=== PATIENT | male | born 1970 | race Caucasian/White ===

== ENCOUNTER 2021-10-22 09:52 | Outpatient (CLI) | payer OTHER, SELFPAY ==
[2021-10-22 11:28] LABS: Albumin* 4.4 g/dL (3.3-5.0)
[2021-10-22 11:29] LABS: Chloride* 104 mmol/L (96-114); Potassium* 4.4 mmol/L (3.6-5.1); Sodium* 138 mmol/L (135-149)
[2021-10-22 11:31] LABS: Alkaline Phosphatase* 72 U/L (40-150); Aspartate Amino Transferase* 63 U/L (12-35); Bilirubin Total* 1.2 mg/dL (0.1-1.5); Blood Urea Nitrogen* 15 mg/dL (7-30); Carbon Dioxide* 26 mmol/L (20-32); Creatinine* 1.3 mg/dL (0.5-1.5); Estimated Glomerular Filt Rate 66 ml/min; Total Protein* 7.2 g/dL (6.0-8.3)
[2021-10-22 11:32] LABS: Alanine Aminotransferase* 30 U/L (4-50); Glucose* 64 mg/dL (60-115)
== END 2021-10-22 09:53 | disposition home or self-care (01) ==
PROVIDERS: PCP Family Medicine; Visit Provider Family Medicine
DX: R53.83 Other fatigue (principal); Z51.81 Encounter for therapeutic drug level monitoring
CPT/HCPCS: 80053; 84443

== ENCOUNTER 2023-02-24 22:49 | Outpatient (CLI) | payer MEDICARE, SELFPAY ==
--- OUTSIDE RECORDS SUMMARY | 2023-03-04 17:41 | XMS_ITS | Clinical Summary ---
Author Name Unknown Organization [facility] Address [place], [place] [address] Care Team Providers Care Grades 1 Thru 6 Visiting Teacher Name Role Phone [place] Ozz[place] gro[place] Primary Care Provider Unavail able Allergies Active Allergy Reactions Criticality Noted Date Comments [place] *Unknown 06/19/2016 Trazodone *Unknown 06/19/2016 Medications Medication Sig Dispensed Refills Start Date End Date Status cloNIDine HCL (CATAPRES) 0.1 mg tablet Take by mouth. TAKE 1/2 TABLET EVERY MORNING AND 2 TABLETS EVERY NIGHT AT BEDTIME 0 01/22/2022 Active divalproex (DEPAKOTE) 125 mg Delayed-Release tablet Take 250 mg by mouth at bedtime. TAKE TWO 125 MG TABLETS WITH TWO 500 MG TABLETS (FOR A TOTAL OF 1250 MG) 0 10/18/2021 Active divalproex (DEPAKOTE ER) 500 mg Extended-Release tablet Take by mouth at bedtime. TAKE TWO 125 MG TABLETS WITH TWO 500 MG TABLETS (FOR A TOTAL OF 1250 MG) 0 01/21/2022 Active pregabalin (LYRICA) 300 mg capsule Take 300 mg by mouth two times daily. 0 01/21/2022 Active warfarin (COUMADIN) 3 mg tablet Take 9 mg by mouth once daily. 0 11/27/2021 Active lurasidone (Latuda) 120 mg tab Take 120 mg by mouth once daily. 0 Active pantoprazole (PROTONIX) 40 mg delayed-release tabletIndications:UG I bleed Take 1 Tablet (40 mg) by mouth two times daily before meals. 60 Tablet 0 02/19/2022 Active sucralfate (CARAFATE) 1 gram tabletIndications:UG I bleed Take 1 Tablet (1 g) by mouth four times daily before meals and at bedtime. 120 Tablet 0 02/19/2022 Active Active Problems Problem Noted Date Diagnosed Date Alcohol abuse 02/18/2022 UGI bleed 02/17/2022 Bipolar 1 disorder Encounters Date Type Department Care Team Description 02/25/2023 12:05 AM CUSTOMER ASSOCIATE - 02/25/2023 8:32 AM CUSTOMER ASSOCIATE Emergency [facility] [address] [place] [address] Tuan Marsh MD Methamphetamine abuse (HC) (Primary Dx) Discharge Disposition: Home Self Care 02/25/2023 Travel from Last 3 Months Social History Tobacco Use Types Packs/Day Years Used Date Smoking Tobacco: Every Day Cigarettes Smokeless Tobacco: Never Tobacco Cessation:Ready to Q uit: Not Asked; Counseling Given: Not Answered Alcohol Use Standard Drinks/Week Comments Not Currently 0 (1 standard drink = 0.6 oz pur e alcohol) Social Connections Answer Date Recorded Frequency of Communication with Friends and Fami ly Not on file 05/26/2022 Sex and Gender Information Value Date Recorded Sex Assigned at Not on file Gender Identity Not on file Sexual Orientation Not on file Obstetrics History Last Filed Vital Signs Vital Sign Reading Time Taken Comments Blood Pressure 134/88 02/25/2023 12:36 AM CUSTOMER ASSOCIATE Pulse 92 02/25/2023 12:36 AM CUSTOMER ASSOCIATE Temperature 36.8 ??C (98.2 ??F) 02/25/2023 1 2:36 AM CUSTOMER ASSOCIATE Respiratory Rate 16 02/25/2023 12:3 6 AM CUSTOMER ASSOCIATE Oxygen Saturation 97% 02/25/2023 12: 36 AM CUSTOMER ASSOCIATE Inhaled Oxygen Concentration - - Weight 91.6 kg (201 lb 14.4 oz) 02/19/2022 6:00 AM CUSTOMER ASSOCIATE Height 193 cm (6' 3.98) 02/18/2022 4:00 PM CUSTOMER ASSOCIATE Body Mass Index 24.59 02/18/2022 4:00 PM CUSTOMER ASSOCIATE Plan of Treatment Health Maintenance Due Date Last Done Comments Tdap 12/01/1979 Depression screening for age 12+ 1980 HIV for age 15-65 12/01/1983 BMI (ht and wt on same day) for age 18+ 1986 Hepatitis C screening for ag e 18-79 1986 Tetanus booster 1988 Colonoscopy through age 75 2013 Lipids for age 45-75 2013 Zoster (shingles) series for age 50+ (1 of 2) 2018 COVID-19 vaccine series ( season) 2022 05/17/2020, 04/19/2020 Influenza for age 50-64 10/16/2022 Pneumococcal series for age 6-64 Aged Out No longer eligible b ased on patient's age to complete this topic Procedures Procedure Name Priority Date/Time Associated Diagnosis Comments ETHANOL SERUM OR PLASMA STAT 02/25/2023 12:21 AM CUSTOMER ASSOCIATE DRUG SCREEN RAPID URINE INHOUSE STAT 02/25/2023 12:18 AM CUSTOMER ASSOCIATE from Last 3 Months Results * ETHANOL SERUM OR PLASMA (02/25/2023 12:21 AM CUSTOMER ASSOCIATE) ETHANOL <0.010 <0.010 g/dL 02/25/2023 12:50 AM [facility] Blood BLOOD SPECIMEN / Unknown Butterfly / Unknown 02/25/2023 12:21 AM CUSTOMER ASSOCIATE 02/25/2023 12:32 AM CUSTOMER ASSOCIATE Tuan Marsh MD CHEMISTRY [facility] [address] [place] [address] * (ABNORMAL) DRUG SCREEN RAPID URINE INHOUSE (02/25/2023 12:18 AM CUSTOMER ASSOCIATE) THC METABOLITES,PREETI L Non-negative , consider further testing if indicated(A) Not Detected 02/25/2023 12:54 AM [facility] PCP,QUAL Not Detected Not Detected 02/25/2023 12:54 AM [facility] COCAINE,QUAL Not Detected Not Detected 02/25/2023 12:54 AM [facility] METHAMPHETAMINE , QUALITATIVE Non-negative , consider further testing if indicated(A) Not Detected 02/25/2023 12:54 AM [facility] OPIATES,QUAL Not Detected Not Detected 02/25/2023 12:54 AM [facility] AMPHETAMINE, QUALITATIVE Non-negative , consider further testing if indicated(A) Not Detected 02/25/2023 12:54 AM [facility] BENZODIAZEPINES ,QUAL Not Detected Not Detected 02/25/2023 12:54 AM [facility] TRICYCLICS,QUAL Not Detected Not Detected 02/25/2023 12:54 AM [facility] METHADONE, QUALITATIVE Not Detected Not Detected 02/25/2023 12:54 AM [facility] BARBITURATES,QU AL Not Detected Not Detected 02/25/2023 12:54 AM [facility] OXYCODONE, QUALITATIVE Not Detected Not Detected 02/25/2023 12:54 AM [facility] BUPRENORPHINE, QUALITATIVE Not Detected Not Detected 02/25/2023 12:54 AM [facility] Urine URINE SPECIMEN / Unknown Non-Blood / Unknown 02/25/2023 12:18 AM [facility] 02/25/2023 12:[address] [facility] - 02/25/2023 12:54 AM [facility] Please Note: ?? This is a screening test only, all results are unconfirmed and should be used for medical purposes only. ??Unconfirmed results must not be used for non-medical purposes (e.g., employment testing, legal testing). ??Suggest analyte specific confirmation for all non-negative results. ??Specimens will be held for 24 hours if additional testing is needed. ?? The following threshold concentrations are used for this analysis: ? Drug ? Screening Threshold ? Buprenorphine ? 10 ng/mL PCP ? 25 ng/mL ?? THC Metabolites ? 50 ng/mL *Opiates ? 100 ng/mL Oxycodone ?100 ng/mL Cocaine ?150 ng/mL Benzodiazepines ?150 ng/mL ?? Methadone ?200 ng/mL ?? Barbiturates ? 200 ng/mL Tricyclic Antidepressants ?300 ng/mL ?? Amphetamines ? 500 ng/mL ?? Methamphetamines ? 500 ng/mL ?*Includes related compounds: ? Codeine ?50 ng/mL ? Heroin ?100 ng/mL ? Morphine ?100 ng/mL ? Hydrocodone ? 400 ng/mL ? Hydromorphone ? 800 ng/mL ?Venlafaxine (Effexor) is a known cross reactant in the PCP ?assay. ??If clinically indicated, order PCP confirmation. Tuan Marsh MD URINE Performing Organization Address [facility]/State/ZIP Co de Phone Number [facility] [address] [place] [address] from Last 3 Months Advance Directives Latest Code Status on File Code Status Date Activated Date Inactivated Comments Full Code 02/17/2022 10:41 PM 02/20/2022 12:21 PM Question Answer Comments Code Status Discussion: Reviewed Preferences Care Teams Grades 1 Thru 6 Visiting Teacher Relationship Specialty Start Date End Date Mirian Alberts PCP - General 12/24/21
== END 2023-02-24 22:50 | disposition home or self-care (01) ==
PROVIDERS: PCP Family Medicine; Visit Provider Emergency Medicine Emergency Medical Services
DX: R41.82 Altered mental status, unspecified (principal)
CPT/HCPCS: A0425; A0427

== ENCOUNTER 2023-03-16 08:48 | Outpatient (CLI) | payer MEDICARE, SELFPAY ==
--- OUTSIDE RECORDS SUMMARY | 2023-03-16 09:15 | XMS_ITS | Clinical Summary ---
Author Name Unknown Organization [employer] [facility] Address [place], [place] [address] Care Team Providers Care Public Relations Senior Associate Name Role Phone [place] Ozziegrady Primary Care Provider Unavail able Allergies Active Allergy Reactions Criticality Noted Date Comments [place] *Unknown 06/19/2016 Trazodone *Unknown 06/19/2016 Medications Medication [...] Department Care Team Description 02/25/2023 12:05 AM WAGE ANALYST - 02/25/2023 8:32 AM WAGE ANALYST Emergency [facility] [address] [place] [address] Tuan Marsh MD Methamphetamine abuse (HC) (Primary [...] Comments Blood Pressure 134/88 02/25/2023 12:36 AM WAGE ANALYST Pulse 92 02/25/2023 12:36 AM WAGE ANALYST Temperature 36.8 ??C (98.2 ??F) 02/25/2023 1 2:36 AM WAGE ANALYST Respiratory Rate 16 02/25/2023 12:3 6 AM WAGE ANALYST Oxygen Saturation 97% 02/25/2023 12: 36 AM WAGE ANALYST Inhaled Oxygen Concentration - - Weight 91.6 kg (201 lb 14.4 oz) 02/19/2022 6:00 AM WAGE ANALYST Height 193 cm (6' 3.98) 02/18/2022 4:00 PM WAGE ANALYST Body Mass Index 24.59 02/18/2022 4:00 PM WAGE ANALYST Plan of Treatment Health Maintenance Due Date [...] SERUM OR PLASMA STAT 02/25/2023 12:21 AM WAGE ANALYST DRUG SCREEN RAPID URINE INHOUSE STAT 02/25/2023 12:18 AM WAGE ANALYST from Last 3 Months Results * ETHANOL SERUM OR PLASMA (02/25/2023 12:21 AM WAGE ANALYST) ETHANOL <0.010 <0.010 g/dL 02/25/2023 12:50 AM [facility] Blood BLOOD SPECIMEN / Unknown Butterfly / Unknown 02/25/2023 12:21 AM WAGE ANALYST 02/25/2023 12:32 AM WAGE ANALYST Tuan Marsh MD CHEMISTRY [facility] [address] [place] [address] * (ABNORMAL) DRUG SCREEN RAPID URINE INHOUSE (02/25/2023 12:18 AM WAGE ANALYST) THC METABOLITES,PREETI L Non-negative , consider further testing if indicated(A) Not Detected 02/25/2023 12:54 AM [facility] PCP,QUAL Not Detected Not Detected 02/25/2023 12:54 AM [facility] COCAINE,QUAL Not Detected Not Detected 02/25/2023 12:54 AM [facility] METHAMPHETAMINE , QUALITATIVE Non-negative , consider further testing if indicated(A) Not Detected 02/25/2023 12:54 AM [facility] OPIATES,QUAL Not Detected Not Detected 02/25/2023 12:54 AM [facility] AMPHETAMINE, QUALITATIVE Non-negative , consider further testing if indicated(A) Not Detected 02/25/2023 12:54 AM [facility] BENZODIAZEPINES ,QUAL Not Detected Not Detected 02/25/2023 12:54 AM [facility] TRICYCLICS,QUAL Not Detected Not Detected 02/25/2023 12:54 AM [facility] METHADONE, QUALITATIVE Not Detected Not Detected 02/25/2023 12:54 AM [facility] BARBITURATES,QU AL Not Detected Not Detected 02/25/2023 12:54 AM [facility] OXYCODONE, QUALITATIVE Not Detected Not Detected 02/25/2023 12:54 AM [facility] BUPRENORPHINE, QUALITATIVE Not Detected Not Detected 02/25/2023 12:54 AM [facility] Urine URINE SPECIMEN / Unknown Non-Blood / Unknown 02/25/2023 12:18 AM [facility] 02/25/2023 12:38 AM [facility] - 02/25/2023 12:54 AM [facility] Please Note: ?? This is a screening [...] Tuan Marsh MD URINE Performing Organization Address [facility]/State/ZIP Co de Phone Number [facility] [address] [place] [address] from Last 3 Months Advance Directives Latest Code Status on File Code Status Date Activated Date Inactivated Comments Full Code 02/17/2022 10:41 PM 02/20/2022 12:21 PM Question Answer Comments Code Status Discussion: Reviewed Preferences Care Teams Public Relations Senior Associate Relationship Specialty Start Date End Date Mirian Alberts PCP - General 12/24/21
== END 2023-03-16 08:49 | disposition home or self-care (01) ==
PROVIDERS: PCP Family Medicine; Visit Provider Family Medicine
DX: Z86.711 Personal history of pulmonary embolism (principal); Z79.01 Long term (current) use of anticoagulants; F31.9 Bipolar disorder, unspecified; F19.10 Other psychoactive substance abuse, uncomplicated; Z79.899 Other long term (current) drug therapy
CPT/HCPCS: 80053; 80164; 80165; 85025

== ENCOUNTER 2023-05-25 08:58 | Outpatient (CLI) | payer OTHER, SELFPAY ==
--- OUTSIDE RECORDS SUMMARY | 2023-05-25 09:00 | XMS_ITS | Clinical Summary ---
Author Name Unknown Organization [facility] Address [address] [place] [address] Care Team Providers Care Champion Of Sustainable Design Name Role Phone Unavailable Primary Care Provider Unavailabl e Source Comments Patient records contain information from all sites at [facility]. For routine questions regarding patient records, call [phone] during business hours, M-F 8:00 AM - 5:00 PM Central Time. Record requests for emergency care only can be directed to [phone] at any time.[facility] Allergies Active Allergy Reactions Criticality Noted Date Comments [place] Other (see comments) 06/19/2016 Nervous hand tremors Quetiapine Anxiety 03/16/2023 Restless legs Trazodone Other (see comments) 06/19/2016 Restless legs Medications Medication Sig Dispensed Refills Start Date End Date Status warfarin (JANTOVEN) 3 mg tablet Take 9 mg by mouth daily. 0 11/27/2021 Active divalproex (DEPAKOTE ER) 500 mg 24 hr tablet Take 625 mg by mouth daily. 0 01/21/2022 Active pregabalin (LYRICA) 300 mg capsule Take 300 mg by mouth 2 (two) times a day. 0 01/21/2022 Active cloNIDine (CATAPRES) 0.1 mg tablet Take 0.5 mg by mouth 2 (two) times a day. 0 01/22/2022 Active promethazine (PHENERGAN) 25 mg tablet Take 25 mg by mouth every 6 (six) hours as needed for nausea or vomiting. 0 Active Social History Tobacco Use Types Packs/Day Years Used Date Smoking Tobacco: Never Assessed Nutrition Answer Date Recorded Nutrition: EVOO Fat Source Unknown 03/15 Nutrition: Servings of Fruits/Vegetables per Day Not on file 03/15/2023 Dental Answer Date Recorded Dental: Regular Dentist Unknown 03/15/19 Sex and Gender Information Value Date Recorded Sex Assigned at Not on file Gender Identity Male 03/16/2023 1:26 PM RUG DYER Sexual Orientation Straight 03/16/2023 1: 26 PM RUG DYER Plan of Treatment Health Maintenance Due Date Last Done Comments CT Colonography 1968 Cologuard 1968 Colonoscopy 1968 Colorectal Cancer Screening 1968 FIT 1968 HIV Screening 1968 Hepatitis C Screening 1968 Lipid (Cholesterol) Screening 1968 Hepatitis B Vaccines (1 of 3 - 19+ 3-dose series) 12/01/1987 Zoster Vaccines (1 of 2) 2018 COVID-19 Vaccine (3 - 2022-2 4 season) 2022 05/17/2020, 04/19/2020 Influenza Vaccine (#1) 2022 Depression Screening (Annual PHQ-2) 02/15/2023 Fasting Glucose for Diabetes Screening 02/17/2025 02/17/2022, 12/24/2021 DTaP,Tdap,and Td Vaccines (2 - Td or Tdap) 02/23/2026 02/24/2016 Pneumococcal vaccine (0-64 years) Aged Out No longer eligible b ased on patient's age to complete this topic
--- OUTSIDE RECORDS SUMMARY | 2023-05-25 09:00 | XMS_ITS | Clinical Summary ---
Author Name Unknown Organization [employer] [facility] Address [place], [place] [address] Care Team Providers Care Pharmaceutical Process Engineer Name Role Phone Ozzie Albertshedley Primary Care Provider Unavail able Allergies Active Allergy Reactions Criticality Noted Date Comments [place] *Unknown 06/19/2016 Trazodone *Unknown 06/19/2016 Medications Medication Sig Dispensed Refills Start Date End Date Status cloNIDine HCL (CATAPRES) 0.1 mg tablet Take by mouth. TAKE 1/2 TABLET EVERY MORNING AND 2 TABLETS EVERY NIGHT AT BEDTIME 01/22/2022 Active divalproex (DEPAKOTE) 125 mg Delayed-Release tablet Take 250 mg by mouth at bedtime. TAKE TWO 125 MG TABLETS WITH TWO 500 MG TABLETS (FOR A TOTAL OF 1250 MG) 10/18/2021 Active divalproex (DEPAKOTE ER) 500 mg Extended-Release tablet Take by mouth at bedtime. TAKE TWO 125 MG TABLETS WITH TWO 500 MG TABLETS (FOR A TOTAL OF 1250 MG) 01/21/2022 Active pregabalin (LYRICA) 300 mg capsule Take 300 mg by mouth two times daily. 01/21/2022 Active warfarin (COUMADIN) 3 mg tablet Take 9 mg by mouth once daily. 11/27/2021 Active lurasidone (Latuda) 120 mg tab Take 120 mg by mouth once daily. Active pantoprazole (PROTONIX) 40 mg delayed-release tabletIndications:UG I bleed Take 1 Tablet (40 mg) by mouth two times daily before meals. 60 Tablet 02/19/2022 Active sucralfate (CARAFATE) 1 gram tabletIndications:UG I bleed Take 1 Tablet (1 g) by mouth four times daily before meals and at bedtime. 120 Tablet 02/19/2022 Active Active Problems Problem Noted Date Diagnosed Date Alcohol abuse 02/18/2022 UGI bleed 02/17/2022 Bipolar 1 disorder Encounters Date Type Department Care Team Description 03/16/2023 Lab Requisition [facility] [phone] Kale Lopez MD 02/25/2023 12:05 AM ARMORED CAR DRIVER - 02/25/2023 8:32 AM ARMORED CAR DRIVER Emergency [address] [address] Tuan Marsh MD Methamphetamine abuse (HC) (Primary [...] Comments Blood Pressure 134/88 02/25/2023 12:36 AM ARMORED CAR DRIVER Pulse 92 02/25/2023 12:36 AM ARMORED CAR DRIVER Temperature 36.8 ??C (98.2 ??F) 02/25/2023 1 2:36 AM ARMORED CAR DRIVER Respiratory Rate 16 02/25/2023 12:3 6 AM ARMORED CAR DRIVER Oxygen Saturation 97% 02/25/2023 12: 36 AM ARMORED CAR DRIVER Inhaled Oxygen Concentration - - Weight 91.6 kg (201 lb 14.4 oz) 02/19/2022 6:00 AM ARMORED CAR DRIVER Height 193 cm (6' 3.98) 02/18/2022 4:00 PM ARMORED CAR DRIVER Body Mass Index 24.59 02/18/2022 4:00 PM ARMORED CAR DRIVER Plan of Treatment Health Maintenance Due Date [...] (1 of 2) 2018 COVID-19 vaccine series (2022- season) 2022 05/17/2020, 04/19/2020 Influenza for age 50-64 10/17/2023 Pneumococcal series for age 6-64 Aged Out No longer eligible b ased on patient's age to complete this topic Procedures Procedure Name Priority Date/Time Associated Diagnosis Comments VALPROIC ACID TOTAL Routine 03/16/2023 8 :53 AM ARMORED CAR DRIVER ETHANOL SERUM OR PLASMA STAT 02/25/2023 12:21 AM ARMORED CAR DRIVER DRUG SCREEN RAPID URINE INHOUSE STAT 02/25/2023 12:18 AM ARMORED CAR DRIVER from Last 3 Months Results * (ABNORMAL) VALPROIC ACID TOTAL (03/16/2023 8:53 AM ARMORED CAR DRIVER) VALPROIC ACID,TOTAL 15.7(L) 50.0 - 100.0 ug/mL 03/16/2023 9:42 PM ARMORED CAR DRIVER [facility] DATE OF LAST DOSE Not Given 03/16/2023 9:42 PM ARMORED CAR DRIVER [facility] TIME OF LAST DOSE Not Given 03/16/2023 9:42 PM ARMORED CAR DRIVER [facility] Blood BLOOD SPECIMEN / Unknown Client Collect / Unknown 03/16/2023 8:53 AM ARMORED CAR DRIVER 03/16/2023 8:43 PM ARMORED CAR DRIVER Kale Lopez MD CHEMISTRY [facility] [address] [place] [address], * ETHANOL SERUM OR PLASMA (02/25/2023 12:21 AM ARMORED CAR DRIVER) ETHANOL <0.010 <0.010 g/dL 02/25/2023 12:50 AM ARMORED CAR DRIVER [facility] Blood BLOOD SPECIMEN / Unknown Butterfly / Unknown 02/25/2023 12:21 AM ARMORED CAR DRIVER 02/25/2023 12:32 AM [facility] Tuan Marsh MD CHEMISTRY [facility] [address] [place] [address] * (ABNORMAL) DRUG SCREEN RAPID URINE INHOUSE (02/25/2023 12:18 AM [facility]) THC METABOLITES,PREETI L Non-negative , consider further testing if indicated(A) Not Detected 02/25/2023 12:54 AM [facility] PCP,QUAL Not Detected Not Detected 02/25/2023 12:54 AM [facility] COCAINE,QUAL Not Detected Not Detected 02/25/2023 12:54 AM [facility] METHAMPHETAMINE , QUALITATIVE Non-negative , consider further testing if indicated(A) Not Detected 02/25/2023 12:54 AM [facility] OPIATES,QUAL Not Detected Not Detected 02/25/2023 12:54 AM [facility] AMPHETAMINE, QUALITATIVE Non-negative , consider further testing if indicated(A) Not Detected 02/25/2023 12:54 AM [facility] BENZODIAZEPINES ,QUAL Not Detected Not Detected 02/25/2023 12:54 AM [facility] TRICYCLICS,QUAL Not Detected Not Detected 02/25/2023 12:54 AM [facility] METHADONE, QUALITATIVE Not Detected Not Detected 02/25/2023 12:54 AM [facility] BARBITURATES,QU AL Not Detected Not Detected 02/25/2023 12:54 AM [facility] OXYCODONE, QUALITATIVE Not Detected Not Detected 02/25/2023 12:54 AM [facility] BUPRENORPHINE, QUALITATIVE Not Detected Not Detected 02/25/2023 12:54 AM [facility] Urine URINE SPECIMEN / Unknown Non-Blood / Unknown 02/25/2023 12:18 AM ARMORED CAR DRIVER 02/25/2023 12:38 AM [facility] - 02/25/2023 12:54 AM ARMORED CAR DRIVER Please Note: ?? This is a screening [...] order PCP confirmation. Tuan Marsh MD URINE [facility] [address] [place] [address] from Last 3 Months Advance Directives * Full Code (Latest Code Status on File) Date Activated Date Inactivated Comments 02/17/2022 10:41 PM 02/20/2022 12:21 PM Question Answer Comments Code Status Discussion: Reviewed Preferences Care Teams Pharmaceutical Process Engineer Relationship Specialty Start Date End Date Mirian Alberts PCP - General 12/24/21
--- OUTSIDE RECORDS SUMMARY | 2023-05-25 09:00 | XMS_ITS | Referral Summary ---
Author Name Unknown Organization [facility] Address [address] [place] [address] Care Team Providers Care Merchandising Specialist Name Role Phone Unavailable Primary Care Provider Unavailabl e Source Comments Patient records contain information from all sites at [facility]. For routine questions regarding patient records, call [phone] during business hours, M-F 8:00 AM - 5:00 PM Central Time. Record requests for emergency care only can be directed to [phone] at any time.[facility] Allergies Active Allergy Reactions Criticality Noted Date Comments [place] Other (see comments) 06/19/2016 Nervous hand tremors [...] file Gender Identity Male 03/16/2023 1:26 PM GLOBAL MARKETING OPERATIONS MANAGER Sexual Orientation Straight 03/16/2023 1: 26 PM GLOBAL MARKETING OPERATIONS MANAGER Plan of Treatment Not on file
--- OUTSIDE RECORDS SUMMARY | 2023-05-25 09:00 | XMS_ITS ---
Author Name Unknown Organization [facility] Address [address] [place] [address] Care Team Providers Care Photographic Processor Name Role Phone Unavailable Unavailable Unavailable Surgery Details Not on file Complications Check Surgery Details section. Procedure Estimated Blood Loss Check Surgery Details section. Procedure Findings Check Surgery Details section. Procedure Specimens Taken Check Surgery Details section.
--- NOTE | 2023-05-25 13:00 | MR_ITS ---
Patient: NIDHI JEAN Facility:?[facility] RIS Patient ID:?[id number] Site Patient ID:?[id number]. Site :?1970 Study:?MRI-Extremity Left SHOULDER-05/25/2023 10:09:54 AM Ordering Physician:MATHEW POTTER Final Report: EXAM: MRI OF THE LEFT SHOULDER WITHOUT CONTRAST CLINICAL INDICATION: Left shoulder pain. COMPARISON PLAIN FILMS: 11/16/2022. COMPARISON CROSS-SECTIONAL IMAGING STUDIES: None available at time of interpretation. TECHNICAL: Axial, sagittal oblique and coronal oblique T1, PD, PD FS and T2-weighted images. Shoulder surface coil. FINDINGS: ROTATOR CUFF TENDONS AND MUSCLES AND DELTOID: Supraspinatus: Full-thickness tear of the entire supraspinatus tendon with 3 cm of medial retraction. Moderate tendinopathy. No muscle atrophy or edema. Infraspinatus: Irregular partial-thickness tearing of the anterior margin of the infraspinatus tendon. Moderate to advanced tendinopathy. No muscle atrophy or edema. Subscapularis: Irregular low-grade partial-thickness articular surface tearing of the distal subscapularis tendon with moderate tendinopathy. No muscle atrophy or edema. Teres Minor: No tendinosis, tendon tearing, muscle atrophy or muscle edema. Deltoid: No muscle atrophy or edema. BURSA: Subacromial-subdeltoid: Small amount of fluid in the subacromial subdeltoid bursa. BICEPS TENDON, LONG HEAD: The long head of the biceps tendon is appropriately positioned within the bicipital groove without tendon subluxation or dislocation. The biceps christina mechanism is intact. The biceps anchor appears grossly intact. There is no significant tendinosis or tendon tearing. CORACOACROMIAL ARCH: Acromial Morphology: Type 1 acromial morphology. Mild lateral downsloping of the acromion. No anterior downsloping. Moderate-sized subacromial enthesophyte. No os acromiale. Acromiohumeral Interval: Narrowed humeral acromial interval. Coracohumeral Interval: Normal. ACROMIOCLAVICULAR JOINT REGION: AC Joint: Distal clavicular osteolysis. No adjacent edema. Ligaments: Chronic tear of the coracoclavicular ligaments. GLENOHUMERAL JOINT: Joint space: Small joint effusion. No synovitis or loose body. Humeral Head Articular Cartilage: No focal cartilage defect or underlying subchondral marrow changes. Glenoid Articular Cartilage: No focal cartilage defect or underlying subchondral marrow changes. Labrum: No labral tear or paralabral cyst. Alignment: Maintained. Capsule: No capsular edema or abnormal capsular thickening. OSSEOUS STRUCTURES: No fracture, marrow edema or marrow replacement process. OTHER FINDINGS: There is no abnormality within the suprascapular or spinoglenoid notches nor within the quadrilateral space. No axillary adenopathy or mass. IMPRESSION: 1. Full-thickness tear of the entire supraspinatus tendon with medial retraction and moderate tendinopathy. 2. Irregular partial-thickness tear of the anterior margin of the infraspinatus tendon with moderate to advanced tendinopathy. 3. Low-grade partial-thickness articular surface tear of the subscapularis tendon with moderate tendinopathy. 4. Lateral downsloping of the acromion and subacromial enthesophyte. 5. Distal clavicular osteolysis. 6. Chronic tear of the coracoclavicular ligaments. 7. Small glenohumeral joint effusion and fluid in the subacromial subdeltoid bursa. Dictated by James Simpson MD @ 05/25/2023 8:12:51 PM Signed by:?James Simpson MD @05/25/2023 8:12:51 PM (Electronic Signature)
== END 2023-05-25 08:59 | disposition home or self-care (01) ==
PROVIDERS: PCP Family Medicine; Visit Provider Family Medicine
DX: M25.512 Pain in left shoulder (principal); M75.102 Unspecified rotator cuff tear or rupture of left shoulder, not specified as traumatic; S46.912A Strain of unspecified muscle, fascia and tendon at shoulder and upper arm level, left arm, initial encounter; M89.512 Osteolysis, left shoulder; M25.412 Effusion, left shoulder; M75.82 Other shoulder lesions, left shoulder
CPT/HCPCS: 73221

== ENCOUNTER 2023-06-03 14:25 | Outpatient (CLI) | payer OTHER, SELFPAY ==
--- OUTSIDE RECORDS SUMMARY | 2023-06-03 14:29 | XMS_ITS | Clinical Summary ---
Author Name Unknown Organization [facility] Address [address] [place] [address] Care Team Providers Care High Density Finishing Operator Name Role Phone Unavailable Primary Care Provider Unavailabl e Source Comments Patient records contain information from all sites at [facility]. For routine questions regarding patient records, call [phone] during business hours, M-F 8:00 AM - 5:00 PM Central Time. Record requests for emergency care only can be directed to [phone] at any time.[facility] Allergies Active Allergy Reactions Criticality Noted Date Comments [place] Other (see comments) 06/19/2016 Nervous hand tremors Quetiapine Anxiety 03/16/2023 Restless legs Trazodone Other (see comments) 06/19/2016 Restless legs Medications Medication Sig Dispensed Refills Start Date End Date Status warfarin (JANTOVEN) 3 mg tablet Take 9 mg by mouth daily. 11/27/2021 Active divalproex (DEPAKOTE ER) 500 mg 24 hr tablet Take 625 mg by mouth daily. 01/21/2022 Active pregabalin (LYRICA) 300 mg capsule Take 300 mg by mouth 2 (two) times a day. 01/21/2022 Active cloNIDine (CATAPRES) 0.1 mg tablet Take 0.5 mg by mouth 2 (two) times a day. 01/22/2022 Active promethazine (PHENERGAN) 25 mg tablet Take 25 mg by mouth every 6 (six) hours as needed for nausea or vomiting. Active Social History Tobacco Use Types Packs/Day Years Used Date Smoking Tobacco: Never Assessed Nutrition Answer Date Recorded Nutrition: EVOO Fat Source Unknown 03/15 Nutrition: Servings of Fruits/Vegetables per Day Not on file 03/15/2023 Dental Answer Date Recorded Dental: Regular Dentist Unknown 03/15/19 Sex and Gender Information Value Date Recorded Sex Assigned at Not on file Gender Identity Male 03/16/2023 1:26 PM ASSOCIATE PROGRAMMER Sexual Orientation Straight 03/16/2023 1: 26 PM ASSOCIATE PROGRAMMER Plan of Treatment Health Maintenance Due Date [...] Procedure Name Priority Date/Time Associated Diagnosis Comments EXTI BASIC METABOLIC PANEL, S/P Routine 02/17/2022 9:01 AM ASSOCIATE PROGRAMMER from Last 3 Months or Most Recently Relevant to Health Maintenance
--- NOTE | 2023-06-03 14:30 | MR_ITS ---
[address] [address] Phone:?[phone] Fax:?[phone] Referring Physician Information: Maria Eugenia Driscoll [address] [facility] [address] Phone:?[phone] Fax:?[phone] Patient:Benoit Floyd D.O.B:?1970 Sex:?Male Phone:?[phone] [facility] MRN:?[id number] Exam Date:?06/03/2023 EXAM: MRI OF THE RIGHT SHOULDER CLINICAL INFORMATION: The patient is a 52-year-old with right shoulder pain. Evaluate long head of the biceps. Evaluate rotator cuff. PRIOR SURGERY: None reported. COMPARISON STUDIES: Comparison is made to prior radiographs dated 05/31/2023. TECHNICAL INFORMATION: Using a 1.5T MR scanner and a localizing shoulder surface coil: 3.0 mm?coronal obliques: PD, T2, STIR 3.0 mm?sagittal obliques: PD, T2 3.0 mm?axials: PD, T2 FINDINGS: Articular/Extraarticular collections: Effusion: None. Subacromial/subdeltoid: Mild to moderate fluid is seen within the subacromial/subdeltoid bursa, in keeping with changes of bursitis. Subcoracoid: No evidence for bursitis. Osseous structures: Proximal humerus: There is cortical irregularity, subcortical edema, and subcortical cystic change involving the greater tuberosity region, in keeping with the rotator cuff pathology discussed below. There is no evidence for greater or lesser tuberosity fracture. No Hill-Sachs or reverse Hill-Sachs lesion is identified. Glenoid: No acute bony abnormality of the glenoid fossa or glenoid neck can be seen. Acromioclavicular joint: Mild changes of acromioclavicular joint arthrosis are present and can be seen on coronal series 4 or image 11 and on sagittal series 8 image 15. Coracoacromial arch: Acromion morphology: Type II. No evidence for os acromiale. Acromiohumeral space: Moderately narrowed. Coracohumeral space: Mildly narrowed. Rotator cuff and deltoid: Supraspinatus: Moderate changes of supraspinatus tendinosis can be seen. There is a superimposed focus of full-thickness or near full-thickness tearing involving the anterior and distal fibers, seen on coronal series 4 image 9 and on coronal series 6 image 9. The area of tearing measures approximately 8 mm in mediolateral dimension and 8 mm in anteroposterior dimension. No atrophic changes of the supraspinatus muscle belly are identified. Infraspinatus: Mild to moderate infraspinatus tendinosis can be seen. There is no evidence for full or partial-thickness tearing. No atrophic changes of the infraspinatus muscle belly are present. Teres minor: No evidence for tendinosis, tearing, or associated muscle belly atrophy. Subscapularis: Moderate subscapularis tendinosis can be seen. There is no evidence for full or partial-thickness tearing. No atrophic changes of the subscapularis muscle belly are noted. Deltoid: No evidence for strain or tearing. Biceps tendon: The intra-articular and biceps sulcus portions of the biceps tendon are normal. There is no evidence for rupture, dislocation, or subluxation. Glenohumeral joint and labrum: Articular Cartilage: Chondromalacia and chondral thinning along the articular surfaces of the glenohumeral articulation can be seen without definite full- thickness chondral defect. No osteoarthritic changes are identified. Labrum: The anterior, posterior, superior, and inferior portions of the labrum appear intact. No evidence for paralabral ganglion cyst formation can be seen. Capsular Soft Tissues: No definite capsular abnormalities of the glenohumeral joint are seen. No evidence for capsular tearing is present and there are no MR signs of adhesive capsulitis. CONCLUSION: 1. Moderate supraspinatus tendinosis with superimposed full-thickness or near full-thickness tearing of the anterior and distal tendon fibers as described above. 2. Mild to moderate infraspinatus and moderate subscapularis tendinosis. 3. Mild acromioclavicular joint arthrosis with moderate narrowing of the acromiohumeral space. 4. Mild to moderate subacromial/subdeltoid bursitis. 5. No definite injuries to the glenoid labrum or long head of the biceps can be seen. 6. Chondromalacia and chondral thinning along the articular surfaces of the glenohumeral articulation. [facility] Electronically signed on 06/04/2023 10:07:00 AM by Young Frazier M.D.
--- OUTSIDE RECORDS SUMMARY | 2023-06-03 14:30 | XMS_ITS | Clinical Summary ---
Author Name Unknown Organization [employer] [facility] Address [place], [place] [address] Care Team Providers Care Foreign Language Stenographer Name Role Phone Mirian Alberts Primary Care Provider Unavail able Allergies Active Allergy Reactions Criticality Noted Date Comments [place] *Unknown 06/19/2016 Trazodone *Unknown 06/19/2016 Medications Medication [...] Department Care Team Description 03/16/2023 Lab Requisition [facility] [phone] Kale Lopez MD from Last 3 Months Social History Tobacco [...] Comments Blood Pressure 134/88 02/25/2023 12:36 AM BRAIN WAVE TECHNICIAN Pulse 92 02/25/2023 12:36 AM BRAIN WAVE TECHNICIAN Temperature 36.8 ??C (98.2 ??F) 02/25/2023 1 2:36 AM BRAIN WAVE TECHNICIAN Respiratory Rate 16 02/25/2023 12:3 6 AM BRAIN WAVE TECHNICIAN Oxygen Saturation 97% 02/25/2023 12: 36 AM BRAIN WAVE TECHNICIAN Inhaled Oxygen Concentration - - Weight 91.6 kg (201 lb 14.4 oz) 02/19/2022 6:00 AM BRAIN WAVE TECHNICIAN Height 193 cm (6' 3.98) 02/18/2022 4:00 PM BRAIN WAVE TECHNICIAN Body Mass Index 24.59 02/18/2022 4:00 PM BRAIN WAVE TECHNICIAN Plan of Treatment Health Maintenance Due Date [...] ACID TOTAL Routine 03/16/2023 8 :53 AM BRAIN WAVE TECHNICIAN from Last 3 Months Results * (ABNORMAL) VALPROIC ACID TOTAL (03/16/2023 8:53 AM BRAIN WAVE TECHNICIAN) VALPROIC ACID,TOTAL 15.7(L) 50.0 - 100.0 ug/mL 03/16/2023 9:42 PM BRAIN WAVE TECHNICIAN [facility] DATE OF LAST DOSE Not Given 03/16/2023 9:42 PM BRAIN WAVE TECHNICIAN [facility] TIME OF LAST DOSE Not Given 03/16/2023 9:42 PM BRAIN WAVE TECHNICIAN [facility] Blood BLOOD SPECIMEN / Unknown Client Collect / Unknown 03/16/2023 8:53 AM BRAIN WAVE TECHNICIAN 03/16/2023 8:43 PM BRAIN WAVE TECHNICIAN Kale Lopez MD CHEMISTRY [facility] [address] [place] [address], from Last 3 Months Advance Directives * Full Code (Latest Code Status on File) Date Activated Date Inactivated Comments 02/17/2022 10:41 PM 02/20/2022 12:21 PM Question Answer Comments Code Status Discussion: Reviewed Preferences Care Teams Foreign Language Stenographer Relationship Specialty Start Date End Date Mirian Alberts PCP - General 12/24/21
--- OUTSIDE RECORDS SUMMARY | 2023-06-03 14:30 | XMS_ITS | Referral Summary ---
Author Name Unknown Organization [facility] Address [address] [place] [address] Care Team Providers Care Brush Holder Inspector Name Role Phone Unavailable Primary Care Provider Unavailabl e Source Comments Patient records contain information from all sites at [facility]. For routine questions regarding patient records, call [phone] during business hours, M-F 8:00 AM - 5:00 PM Central Time. Record requests for emergency care only can be directed to [phone] at any time.[facility] Allergies Active Allergy Reactions Criticality Noted Date Comments [place] Other (see comments) 06/19/2016 Nervous hand tremors [...] file Gender Identity Male 03/16/2023 1:26 PM ANIMAL WARDEN Sexual Orientation Straight 03/16/2023 1: 26 PM ANIMAL WARDEN Plan of Treatment Not on file Procedures Procedure Name Priority Date/Time Associated Diagnosis Comments EXTI BASIC METABOLIC PANEL, S/P Routine 02/17/2022 9:01 AM ANIMAL WARDEN from Last 3 Months or Most Recently Relevant to Health Maintenance
--- OUTSIDE RECORDS SUMMARY | 2023-06-03 14:30 | XMS_ITS ---
Author Name Unknown Organization [facility] Address [address] [place] [address] Care Team Providers Care Wireline Supervisor Name Role Phone Unavailable Unavailable Unavailable Surgery Details Not on file Complications Check Surgery Details section. Procedure Estimated Blood Loss Check Surgery Details section. Procedure Findings Check Surgery Details section. Procedure Specimens Taken Check Surgery Details section.
== END 2023-06-03 14:26 | disposition home or self-care (01) ==
LOC: MRI 14:28
PROVIDERS: PCP Family Medicine; Visit Provider Physician Assistant
DX: M25.511 Pain in right shoulder (principal); M75.101 Unspecified rotator cuff tear or rupture of right shoulder, not specified as traumatic; M19.011 Primary osteoarthritis, right shoulder; M75.51 Bursitis of right shoulder; M94.211 Chondromalacia, right shoulder
CPT/HCPCS: 73221

== ENCOUNTER 2023-06-08 11:20 | Outpatient (CLI) | payer OTHER, SELFPAY ==
--- OUTSIDE RECORDS SUMMARY | 2023-06-08 11:23 | XMS_ITS | Clinical Summary ---
Author Name Unknown Organization [facility] Address [address] [place] [address] Care Team Providers Care Monkey Breeder Name Role Phone Unavailable Primary Care Provider Unavailabl e Source Comments Patient records contain information from all sites at [facility]. For routine questions regarding patient records, call [phone] during business hours, M-F 8:00 AM - 5:00 PM Central Time. Record requests for emergency care only can be directed to [phone] at any time.[facility] Allergies Active Allergy Reactions Criticality Noted Date Comments [place] Other (see comments) 06/19/2016 Nervous hand tremors [...] file Gender Identity Male 03/16/2023 1:26 PM SETTER AUTOMATIC SPINNING LATHE Sexual Orientation Straight 03/16/2023 1: 26 PM SETTER AUTOMATIC SPINNING LATHE Plan of Treatment Health Maintenance Due Date [...] METABOLIC PANEL, S/P Routine 02/17/2022 9:01 AM SETTER AUTOMATIC SPINNING LATHE from Last 3 Months or Most Recently Relevant to Health Maintenance
--- OUTSIDE RECORDS SUMMARY | 2023-06-08 11:23 | XMS_ITS ---
Author Name Unknown Organization [facility] Address [address] [place] [address] Care Team Providers Care Skip Tracer Name Role Phone Unavailable Unavailable Unavailable Surgery Details Not on file Complications Check Surgery Details section. Procedure Estimated Blood Loss Check Surgery Details section. Procedure Findings Check Surgery Details section. Procedure Specimens Taken Check Surgery Details section.
--- OUTSIDE RECORDS SUMMARY | 2023-06-08 11:23 | XMS_ITS | Referral Summary ---
Author Name Unknown Organization [facility] Address [address] [place] [address] Care Team Providers Care Hammersmith Helper Name Role Phone Unavailable Primary Care Provider Unavailabl e Source Comments Patient records contain information from all sites at [facility]. For routine questions regarding patient records, call [phone] during business hours, M-F 8:00 AM - 5:00 PM Central Time. Record requests for emergency care only can be directed to [phone] at any time.[facility] Allergies Active Allergy Reactions Criticality Noted Date Comments [place] Other (see comments) 06/19/2016 Nervous hand tremors [...] file Gender Identity Male 03/16/2023 1:26 PM RAILROAD CAR CLEANER Sexual Orientation Straight 03/16/2023 1: 26 PM RAILROAD CAR CLEANER Plan of Treatment Not on file Procedures Procedure Name Priority Date/Time Associated Diagnosis Comments EXTI BASIC METABOLIC PANEL, S/P Routine 02/17/2022 9:01 AM RAILROAD CAR CLEANER from Last 3 Months or Most Recently Relevant to Health Maintenance
--- OUTSIDE RECORDS SUMMARY | 2023-06-08 11:23 | XMS_ITS | Clinical Summary ---
Author Name Unknown Organization [employer] [facility] Address [place], [place] [address] Care Team Providers Care Promotions Firm Accounts Manager Name Role Phone [facility]ie [facility] [place] Primary Care Provider Unavail able Allergies Active Allergy Reactions Criticality Noted Date Comments [place] *Unknown 06/19/2016 Trazodone *Unknown 06/19/2016 Medications Medication [...] Department Care Team Description 03/16/2023 Lab Requisition [facility] [phone] Kale Lopez MD from Last 3 Months [...] Comments Blood Pressure 134/88 02/25/2023 12:36 AM ENGINE BUILDUP MECHANIC Pulse 92 02/25/2023 12:36 AM ENGINE BUILDUP MECHANIC Temperature 36.8 ??C (98.2 ??F) 02/25/2023 1 2:36 AM ENGINE BUILDUP MECHANIC Respiratory Rate 16 02/25/2023 12:3 6 AM ENGINE BUILDUP MECHANIC Oxygen Saturation 97% 02/25/2023 12: 36 AM ENGINE BUILDUP MECHANIC Inhaled Oxygen Concentration - - Weight 91.6 kg (201 lb 14.4 oz) 02/19/2022 6:00 AM ENGINE BUILDUP MECHANIC Height 193 cm (6' 3.98) 02/18/2022 4:00 PM ENGINE BUILDUP MECHANIC Body Mass Index 24.59 02/18/2022 4:00 PM ENGINE BUILDUP MECHANIC Plan of Treatment Health Maintenance Due Date [...] ACID TOTAL Routine 03/16/2023 8 :53 AM ENGINE BUILDUP MECHANIC from Last 3 Months Results * (ABNORMAL) VALPROIC ACID TOTAL (03/16/2023 8:53 AM ENGINE BUILDUP MECHANIC) VALPROIC ACID,TOTAL 15.7(L) 50.0 - 100.0 ug/mL 03/16/2023 9:42 PM ENGINE BUILDUP MECHANIC [facility] DATE OF LAST DOSE Not Given 03/16/2023 9:42 PM ENGINE BUILDUP MECHANIC [facility] TIME OF LAST DOSE Not Given 03/16/2023 9:42 PM ENGINE BUILDUP MECHANIC [facility] Blood BLOOD SPECIMEN / Unknown Client Collect / Unknown 03/16/2023 8:53 AM ENGINE BUILDUP MECHANIC 03/16/2023 8:43 PM ENGINE BUILDUP MECHANIC Kale Lopez MD CHEMISTRY [facility] [address] [place] [address], from Last 3 Months Advance Directives * Full Code (Latest Code Status on File) Date Activated Date Inactivated Comments 02/17/2022 10:41 PM 02/20/2022 12:21 PM Question Answer Comments Code Status Discussion: Reviewed Preferences Care Teams Promotions Firm Accounts Manager Relationship Specialty Start Date End Date Mirian Alberts PCP - General 12/24/21
== END 2023-06-08 11:21 | disposition home or self-care (01) ==
PROVIDERS: PCP Family Medicine; Visit Provider Family Medicine
DX: Z01.818 Encounter for other preprocedural examination (principal); M75.102 Unspecified rotator cuff tear or rupture of left shoulder, not specified as traumatic
CPT/HCPCS: 80048; 85025

== ENCOUNTER 2023-06-15 06:39 | Day surgery (SDC) | payer OTHER, SELFPAY ==
[2023-06-15] VITALS (13 sets, daily range): BP systolic 120–147; BP diastolic 73–90; PULSE 47–596; RESP 16–161; TEMP 36.3–36.7; O2SAT 95–100; BMI 25.2
--- OUTSIDE RECORDS SUMMARY | 2023-06-15 06:42 | XMS_ITS ---
Author Name Unknown Organization [facility] Address [address] [place] [address] Care Team Providers Care Client Care Representative Name Role Phone Unavailable Unavailable Unavailable Surgery Details Not on file Complications Check Surgery Details section. Procedure Estimated Blood Loss Check Surgery Details section. Procedure Findings Check Surgery Details section. Procedure Specimens Taken Check Surgery Details section.
--- OUTSIDE RECORDS SUMMARY | 2023-06-15 06:42 | XMS_ITS | Referral Summary ---
Author Name Unknown Organization [facility] Address [address] [place] [address] Care Team Providers Care Veterinary Epidemiologist Name Role Phone Unavailable Primary Care Provider Unavailabl e Source Comments Patient records contain information from all sites at [facility]. For routine questions regarding patient records, call [phone] during business hours, M-F 8:00 AM - 5:00 PM Central Time. Record requests for emergency care only can be directed to [phone] at any time.[facility] Allergies Active Allergy Reactions Criticality Noted Date Comments [place] Other (see comments) 06/19/2016 Nervous hand tremors [...] file Gender Identity Male 03/16/2023 1:26 PM FILM PROCESSING UTILITY WORKER Sexual Orientation Straight 03/16/2023 1: 26 PM FILM PROCESSING UTILITY WORKER Plan of Treatment Not on file Procedures Procedure Name Priority Date/Time Associated Diagnosis Comments EXTI BASIC METABOLIC PANEL, S/P Routine 02/17/2022 9:01 AM FILM PROCESSING UTILITY WORKER from Last 3 Months or Most Recently Relevant to Health Maintenance
--- OUTSIDE RECORDS SUMMARY | 2023-06-15 06:42 | XMS_ITS | Clinical Summary ---
Author Name Unknown Organization [employer] [facility] Address [place], [place] [address] Care Team Providers Care Light Bulb Assembler Name Role Phone Mirian Alberts Primary Care Provider Unavail able Allergies Active Allergy Reactions Criticality Noted Date Comments [place] *Unknown 06/19/2016 Trazodone *Unknown 06/19/2016 Medications Medication [...] Department Care Team Description 03/16/2023 Lab Requisition [facility] [phone] Kale Lopez MD from Last 3 Months [...] Comments Blood Pressure 134/88 02/25/2023 12:36 AM DAY CARE ATTENDANT Pulse 92 02/25/2023 12:36 AM DAY CARE ATTENDANT Temperature 36.8 ??C (98.2 ??F) 02/25/2023 1 2:36 AM DAY CARE ATTENDANT Respiratory Rate 16 02/25/2023 12:3 6 AM DAY CARE ATTENDANT Oxygen Saturation 97% 02/25/2023 12: 36 AM DAY CARE ATTENDANT Inhaled Oxygen Concentration - - Weight 91.6 kg (201 lb 14.4 oz) 02/19/2022 6:00 AM DAY CARE ATTENDANT Height 193 cm (6' 3.98) 02/18/2022 4:00 PM DAY CARE ATTENDANT Body Mass Index 24.59 02/18/2022 4:00 PM DAY CARE ATTENDANT Plan of Treatment Health Maintenance Due Date [...] ACID TOTAL Routine 03/16/2023 8 :53 AM DAY CARE ATTENDANT from Last 3 Months Results * (ABNORMAL) VALPROIC ACID TOTAL (03/16/2023 8:53 AM DAY CARE ATTENDANT) VALPROIC ACID,TOTAL 15.7(L) 50.0 - 100.0 ug/mL 03/16/2023 9:42 PM DAY CARE ATTENDANT [facility] DATE OF LAST DOSE Not Given 03/16/2023 9:42 PM DAY CARE ATTENDANT [facility] TIME OF LAST DOSE Not Given 03/16/2023 9:42 PM DAY CARE ATTENDANT [facility] Blood BLOOD SPECIMEN / Unknown Client Collect / Unknown 03/16/2023 8:53 AM DAY CARE ATTENDANT 03/16/2023 8:43 PM DAY CARE ATTENDANT Kale Lopez MD CHEMISTRY [facility] [address] [place] [address], from Last 3 Months Advance Directives * Full Code (Latest Code Status on File) Date Activated Date Inactivated Comments 02/17/2022 10:41 PM 02/20/2022 12:21 PM Question Answer Comments Code Status Discussion: Reviewed Preferences Care Teams Light Bulb Assembler Relationship Specialty Start Date End Date Mirian Alberts PCP - General 12/24/21
--- OUTSIDE RECORDS SUMMARY | 2023-06-15 06:42 | XMS_ITS | Clinical Summary ---
Author Name Unknown Organization [facility] Address [address] [place] [address] Care Team Providers Care Dye Tub Tender Name Role Phone Unavailable Primary Care Provider Unavailabl e Source Comments Patient records contain information from all sites at [facility]. For routine questions regarding patient records, call [phone] during business hours, M-F 8:00 AM - 5:00 PM Central Time. Record requests for emergency care only can be directed to [phone] at any time.[facility] Allergies Active Allergy Reactions Criticality Noted Date Comments [place] Other (see comments) 06/19/2016 Nervous hand tremors [...] file Gender Identity Male 03/16/2023 1:26 PM MOTOR INSPECTION MECHANIC Sexual Orientation Straight 03/16/2023 1: 26 PM MOTOR INSPECTION MECHANIC Plan of Treatment Health Maintenance Due [...] METABOLIC PANEL, S/P Routine 02/17/2022 9:01 AM MOTOR INSPECTION MECHANIC from Last 3 Months or Most Recently Relevant to Health Maintenance
[2023-06-15] MEDS: OXYCODONE (CR) 10 MG TAB.ER.12H PO (07:15)
[2023-06-15] MEDS: ACETAMINOPHEN 500 MG TABLET 1000 MG PO (07:15)
[2023-06-15] MEDS: CELECOXIB 200 MG CAPSULE PO (07:15)
[2023-06-15] MEDS: LACTATED RINGERS 1000 ML 1,000 ML 100 ML IV ×2 (07:30→10:06)
--- NOTE | 2023-06-15 08:16 | SUR.OPER ---
PATIENT QUESTIONS ANSWERED SATISFACTORILY PREOPERATIVELY. PATIENT BROUGHT TO OR #2 PER CART FOLLOWING THE BLOCK. Patient positioned supine on OR #2 bed for the intubation.? Perioperative team wrapped the right arm in a neutral position on the pt. abdomen with the drawsheet. Left arm elevated on an IV pole in a padded strap for prep. Final approval of positioning by surgeon. CONTINUOUS IRRIGATION OF THE LEFT SHOULDER WITH MIXTURE OF 3000 NACL AND 1mg OF EPINEPHRINE DURING PROCEDURE.
[2023-06-15] MEDS: MIDAZOLAM HCL 1 MG/ML inj IVP (08:36)
[2023-06-15] MEDS: fentaNYL 100 MCG/2 ML inj IVP (08:36)
--- NOTE | 2023-06-15 08:48 | SUR.PREOP ---
TIME?OUT:?0835 PT/Krystina Webb RN/Dr. Bruce MDA?VERIFICATION?OF?SURGICAL?SITE left shoulder,?PROCEDURE,?AND?CONSENT OBTAINED?PRIOR?TO?INVASIVE?PROCEDURE.
[2023-06-15] MEDS: CEFAZOLIN 2 GM INJ IVP (09:04)
[2023-06-15] MEDS: EPINEPHrine 1 MG in SODIUM CHLORIDE IRRIG SOLUTION 3,000 ML 3001 MG IRRIGATION ×3 (09:12→09:50)
--- NOTE | 2023-06-15 10:09 | PM.ORPRC ---
Procedure Note Date of procedure: 06/15/23 Procedure: PREOPERATIVE DIAGNOSIS: Left shoulder rotator cuff tear, AC joint arthrosis POSTOPERATIVE DIAGNOSIS: Left shoulder rotator cuff tear, AC joint arthrosis NAME OF OPERATION: Left shoulder arthroscopic subacromial decompression, distal clavicle excision, mini open rotator cuff repair SURGEON: Keron Johnson MD HEARING AID REPAIRER: Shireen Kurtz PA-C ANESTHESIA: Supraclavicular block plus general endotracheal ESTIMATED BLOOD LOSS: 5 mL COMPLICATIONS: None SPECIMENS: None DRAINS: None PREOPERATIVE ANTIBIOTICS: Ancef 2 grams INDICATIONS: The patient is a 52-year-old with a history of left shoulder pain secondary to the above diagnoses. Despite appropriate non operative management, they continue to have symptoms. Operative intervention was recommended. The risks, benefits and expected outcomes were discussed in detail. These included but were not limited to: Infection, bleeding, injury to blood vessel or nerve, venous thromboembolism. All questions were answered to their satisfaction. PROCEDURE: A supraclavicular block was placed by Anesthesia. General anesthesia was administered. The patient was placed in the high beach chair position. The left shoulder was prepped and draped in the usual sterile fashion. The glenohumeral joint was infiltrated with 20 mL of normal saline with epinephrine. The posterior portal was established, the arthroscope was introduced. The anterior portal was established, Diagnostic arthroscopy was performed with findings as follows: The biceps and biceps anchor are intact. The anterior and superior labrum has some age related degenerative tearing. Articular surfaces on the humeral head and glenoid are normal. There are no loose bodies. There is a full-thickness tear of the supraspinatus. The arthroscope was placed in the subacromial space, the lateral portal was established. The Arthrex [place] was used to dissect the acromion free. The CA ligament was recessed off the anterior acromion, the AC joint was exposed. The acromioplasty was performed with the bur in the posterior portal. The bur was then placed in the lateral portal and the lateral and anterior aspect of the acromion were resected. The undersurface of the distal clavicle was resected through the lateral portal. Finally, the bur was placed in the anterior portal and the remainder of the distal clavicle was resected for a total of 10 mm. An accessory anterolateral portal was placed. The subacromial/subdeltoid bursa was aggressively debrided. There is a full-thickness tear of the supraspinatus. Arthroscopic instruments were removed. The accessory anterolateral portal was extended proximally and distally, subcutaneous dissection was taken with electrocautery to the deltoid. The deltoid was divided in line with its fibers. The static retractor was placed. The subacromial/subdeltoid bursa was debrided with the Rodríguez scissors. The greater tuberosity was debrided to punctate bleeding bone using the arthroscopic bur. The anterior aspect of the infraspinatus is delaminated into a superior and inferior leaflet. The bursal surface of the subscap is degenerative and torn, the deep fibers are intact. We placed 2 margin convergence sutures. Two Arthrex BioComposite SwiveLock anchors were placed just off the articular surface. Both limbs of the FiberWire and fiber tape were passed using the scorpion. A fiber link was placed in the leading edge of the rotator cuff x2. We tied the margin convergence sutures. This nicely starts to cover the humeral head. We tied the 2 central FiberWire sutures over the rotator cuff. We then proceeded with a lateral row of SwiveLock anchors x 2 crossing the FiberTape and incorporating the FiberWire and fiber link into each lateral row anchor. We passed suture on the eyelet in both of the lateral row anchors through the leading edge of the rotator cuff resulting in a simple suture to each anchor. This provides an anatomic, watertight repair of the rotator cuff. There is no tension on the repair with the shoulder at 0? abduction. The wound was irrigated with normal saline off the pump. The deltoid was repaired with an 0 Vicryl in an interrupted [id number] fashion. Subcutaneous tissues were closed with a 3-0 Vicryl. Skin was closed with a 3-0 Monocryl in a subcuticular fashion. A dry dressing and sling were applied. Sponge and needle counts were correct x2. The patient tolerated the procedure well. There were no apparent complications. They were carefully transferred to the hospital bed and taken to the postanesthesia care unit in satisfactory condition. PLAN: The patient will be discharged to home. No active range of motion of the shoulder will be allowed for 6 weeks postoperatively. They can work on active range of motion of the elbow, wrist and fingers. They will follow up in the office next week for a wound check and an AP and transscapular Y-view of the shoulder prior to being seen.
--- NOTE | 2023-06-15 10:41 | W.ANESCHARGE ---
Anesthesia Charges Start Date/Time Anesthesia Start Date: 06/15/23 Anesthesia Start Time: 08:44 Stop Date/Time Anesthesia Stop Date: 06/15/23 Anesthesia Stop Time: 10:42
--- NOTE | 2023-06-15 11:31 | W.PM.NB ---
Nerve Block Nerve Block Time Seen by Provider: 08:40 Date Seen: 06/15/23 Type of block requested by surgeon for post-operative analgesia: supraclavicular Side: left Time out performed: Yes Verification of patient name: Yes Verification of date of : Yes Site marking: site marked Name of person performing procedure: Bruce Continuous monitoring Was continuous monitoring of O2 sat, B/P, quality assurance monitor chassis, recorded every 15 minutes?: Yes Procedure Checklist: sterile prep, needles and gloves Ultrasound guided. Images saved: Yes Medications given in 5ml increments after negative aspiration: Ropivicaine %: 0.5 mL: 20 Needle gauge: 22 Decadron (mg): 10 Precedex (mcg): 25 Patient tolerated procedure well: Yes Block Charges Block Charge (with Pro Fee): Brachial Plexus Use of Ultrasound Machine for Block: Yes- US Guidance/pain block
--- NOTE | 2023-06-15 11:32 | W.ANESCHARGE ---
Anesthesia Charges Start Date/Time Anesthesia Start Date: 06/15/23 Anesthesia Start Time: 08:44 Stop Date/Time Anesthesia Stop Date: 06/15/23 Anesthesia Stop Time: 10:42
== END 2023-06-15 12:35 | disposition home or self-care (01) ==
LOC: OR 06:40
PROVIDERS: PCP Family Medicine; Visit Provider Orthopaedic Surgery
PROC: (CPT 23412; principal; 2023-06-15 08:45)
DX: M75.102 Unspecified rotator cuff tear or rupture of left shoulder, not specified as traumatic (principal); M19.012 Primary osteoarthritis, left shoulder; G89.18 Other acute postprocedural pain
CPT/HCPCS: 29826; 29824; 23412; 01630; 64415; 76942; A9270; C1713; J0171; J0690; J1100; J2250; J2371; J2405; J2704; J2710; J2795; J3010; J3490; J7120; L3670

== ENCOUNTER 2023-07-26 10:12 | Outpatient (CLI) | payer OTHER, SELFPAY ==
--- OUTSIDE RECORDS SUMMARY | 2023-07-26 10:14 | XMS_ITS | Clinical Summary ---
Author Organization [employer] [facility] Address [place], [place] [address] Care Team Providers Care Blunger Name Role Phone Skanee Ozziebeaver Primary Care Provider Unavail able Allergies Active Allergy Reactions Criticality Noted Date Comments [place] *Unknown 06/19/2016 Trazodone *Unknown 06/19/2016 Medications Medication [...] 02/18/2022 UGI bleed 02/17/2022 Bipolar 1 disorder Social History Tobacco Use Types Packs/Day Years [...] Comments Blood Pressure 134/88 02/25/2023 12:36 AM BILLET SAWYER Pulse 92 02/25/2023 12:36 AM BILLET SAWYER Temperature 36.8 ??C (98.2 ??F) 02/25/2023 1 2:36 AM BILLET SAWYER Respiratory Rate 16 02/25/2023 12:3 6 AM BILLET SAWYER Oxygen Saturation 97% 02/25/2023 12: 36 AM BILLET SAWYER Inhaled Oxygen Concentration - - Weight 91.6 kg (201 lb 14.4 oz) 02/19/2022 6:00 AM BILLET SAWYER Height 193 cm (6' 3.98) 02/18/2022 4:00 PM BILLET SAWYER Body Mass Index 24.59 02/18/2022 4:00 PM BILLET SAWYER Plan of Treatment Health Maintenance Due Date [...] on patient's age to complete this topic Advance Directives * Full Code (Latest Code Status on File) Date Activated Date Inactivated Comments 02/17/2022 10:41 PM 02/20/2022 12:21 PM Question Answer Comments Code Status Discussion: Reviewed Preferences Care Teams Blunger Relationship Specialty Start Date End Date Mirian Alberts PCP - General 12/24/21
--- OUTSIDE RECORDS SUMMARY | 2023-07-26 10:14 | XMS_ITS ---
Author Organization [facility] Address [address] [place] [address] Care Team Providers Care Switchboard Operator Name Role Phone Unavailable Unavailable Unavailable Surgery Details Not on file Complications Check Surgery Details section. Procedure Estimated Blood Loss Check Surgery Details section. Procedure Findings Check Surgery Details section. Procedure Specimens Taken Check Surgery Details section.
--- OUTSIDE RECORDS SUMMARY | 2023-07-26 10:14 | XMS_ITS | Clinical Summary ---
Author Organization [facility] Address [address] [place] [address] Care Team Providers Care Lidar Technician Name Role Phone Unavailable Primary Care Provider Unavailabl e Source Comments Patient records contain information from all sites at [facility]. For routine questions regarding patient records, call [phone] during business hours, M-F 8:00 AM - 5:00 PM Central Time. Record requests for emergency care only can be directed to [phone] at any time.[facility] Allergies Active Allergy Reactions Criticality Noted Date Comments [place] Other (see comments) 06/19/2016 Nervous hand tremors [...] file Gender Identity Male 03/16/2023 1:26 PM MICA SPREADER Sexual Orientation Straight 03/16/2023 1: 26 PM MICA SPREADER Plan of Treatment Health Maintenance Due Date [...] METABOLIC PANEL, S/P Routine 02/17/2022 9:01 AM MICA SPREADER from Last 3 Months or Most Recently Relevant to Health Maintenance
--- OUTSIDE RECORDS SUMMARY | 2023-07-26 10:14 | XMS_ITS | Referral Summary ---
Author Organization [facility] Address [address] [place] [address] Care Team Providers Care Process Tank Tender Name Role Phone Unavailable Primary Care Provider Unavailabl e Source Comments Patient records contain information from all sites at [facility]. For routine questions regarding patient records, call [phone] during business hours, M-F 8:00 AM - 5:00 PM Central Time. Record requests for emergency care only can be directed to [phone] at any time.[facility] Allergies Active Allergy Reactions Criticality Noted Date Comments [place] Other (see comments) 06/19/2016 Nervous hand tremors [...] file Gender Identity Male 03/16/2023 1:26 PM ROBOTICS TECHNOLOGIST Sexual Orientation Straight 03/16/2023 1: 26 PM ROBOTICS TECHNOLOGIST Plan of Treatment Not on file Procedures Procedure Name Priority Date/Time Associated Diagnosis Comments EXTI BASIC METABOLIC PANEL, S/P Routine 02/17/2022 9:01 AM ROBOTICS TECHNOLOGIST from Last 3 Months or Most Recently Relevant to Health Maintenance
[2023-07-26 13:54] LABS: Prothrombin Time 35.3 Seconds
== END 2023-07-26 10:13 | disposition home or self-care (01) ==
LOC: FBOREF 10:12
PROVIDERS: PCP Family Medicine; Visit Provider Family Medicine
DX: Z86.718 Personal history of other venous thrombosis and embolism (principal); Z79.01 Long term (current) use of anticoagulants
CPT/HCPCS: 85610

== ENCOUNTER 2024-09-07 07:29 | Day surgery (SDC) | payer OTHER, SELFPAY ==
[2024-09-07] VITALS (19 sets, daily range): BP systolic 108–146; BP diastolic 73–103; PULSE 47–74; RESP 11–16; TEMP 35.8–36.7; O2SAT 95–100; BMI 25.3
[2024-09-07] MEDS: LACTATED RINGERS 1000 ML 1,000 ML 100 ML IV (07:35)
[2024-09-07] MEDS: ACETAMINOPHEN 500 MG TABLET 1000 MG PO (07:50)
[2024-09-07] MEDS: CELECOXIB 200 MG CAPSULE PO (07:50)
[2024-09-07] MEDS: OXYCODONE (CR) 10 MG TAB.ER.12H PO (07:50)
[2024-09-07] MEDS: SODIUM CHLORIDE 0.9 % (FLUSH) 10 ML SYRINGE IVF (08:17)
[2024-09-07] MEDS: MIDAZOLAM HCL 1 MG/ML inj IVP (09:19)
--- NOTE | 2024-09-07 09:20 | SUR.PREOP ---
TIME?OUT:?18 PT/RN/MDA?VERIFICATION?OF?SURGICAL?SITE,?PROCEDURE,?AND?CONSENT OBTAINED?PRIOR?TO?INVASIVE?PROCEDURE.
--- NOTE | 2024-09-07 09:26 | P.ANES_ITS ---
Anesthesia Charges Start Date/Time Anesthesia Start Date: 09/07/24 Anesthesia Start Time: 10:23 Stop Date/Time Anesthesia Stop Date: 09/07/24 Anesthesia Stop Time: 12:39 Coding CPT Codes CPT Codes: ANESTH SURGERY OF SHOULDER - 83489 ([id number]) P3 - PATIENT W/SEVERE SYS DISEASE, QK - SOFTWARE TOOLS DEVELOPER 2-4 CNCRNT ANES PROC, QX - UNIX ENGINEER SVC W/ MD MED DIRECTION
--- NOTE | 2024-09-07 09:26 | W.PM.NB ---
Nerve Block Nerve Block Time Seen by Provider: 09:22 Date Seen: 09/07/24 Type of block requested by surgeon for post-operative analgesia: supraclavicular Side: right Time out performed: Yes Verification of patient name: Yes Verification of date of : Yes Site marking: site marked Name of person performing procedure: Bruce Continuous monitoring Was continuous monitoring of O2 sat, B/P, surveillance system monitor, recorded every 15 minutes?: Yes Procedure Checklist: sterile prep, needles and gloves Ultrasound guided. Images saved: Yes Medications given in 5ml increments after negative aspiration: Ropivicaine %: 0.5 mL: 20 Needle gauge: 22 Precedex (mcg): 25 Patient tolerated procedure well: Yes Block Charges Block Charge (with Pro Fee): Brachial Plexus Use of Ultrasound Machine for Block: Yes- US Guidance/pain block
--- NOTE | 2024-09-07 09:26 | W.ANESCHARGE ---
Anesthesia Charges Start Date/Time Anesthesia Start Date: 09/07/24 Anesthesia Start Time: 10:23 Stop Date/Time Anesthesia Stop Date: 09/07/24 Anesthesia Stop Time: 12:39 Coding CPT Codes CPT Codes: ANESTH SURGERY OF SHOULDER - 83719 ([id number]) P3 - PATIENT W/SEVERE SYS DISEASE, QK - [place] 2-4 CNCRNT ANES PROC, QX - RADIO DISC JOCKEY SVC W/ MD MED DIRECTION
[2024-09-07] MEDS: EPINEPHrine 1 MG in SODIUM CHLORIDE IRRIG SOLUTION 3,000 ML 3001 MG IRRIGATION ×3 (11:00→11:40)
--- NOTE | 2024-09-07 12:11 | P.ORPRC_ITS ---
Procedure Note Date of procedure: 09/07/24 Procedure: PREOPERATIVE DIAGNOSIS: Right shoulder rotator cuff tear, AC joint arthrosis, labral tearing POSTOPERATIVE DIAGNOSIS: Right shoulder rotator cuff tear, AC joint arthrosis, labral tearing NAME OF OPERATION: Right shoulder arthroscopic limited glenohumeral joint debridement, subacromial decompression, distal clavicle excision, mini open rotator cuff repair SURGEON: Keron Johnson MD ENVELOPE FOLDER: Shireen Kurtz PA-C ANESTHESIA: Supraclavicular block plus general endotracheal ESTIMATED BLOOD LOSS: 5 mL COMPLICATIONS: None SPECIMENS: None DRAINS: None PREOPERATIVE ANTIBIOTICS: Ancef 2 grams INDICATIONS: The patient is a 53-year-old with a history of right shoulder pain secondary to the above diagnoses. Despite appropriate non operative management, they continue to have symptoms. Operative intervention was recommended. The risks, benefits and expected outcomes were discussed in detail. These included but were not limited to: Infection, bleeding, injury to blood vessel or nerve, venous thromboembolism. All questions were answered to their satisfaction. PROCEDURE: A supraclavicular block was placed by Anesthesia. General anesthesia was administered. The patient was placed in the high beach chair position. The right shoulder was prepped and draped in the usual sterile fashion. The glenohumeral joint was infiltrated with 20 mL of normal saline with epinephrine. The posterior portal was established, the arthroscope was introduced. The anterior portal was established, Diagnostic arthroscopy was performed with findings as follows: The biceps and biceps anchor are intact. The anterior, posterior and superior labrum show age-appropriate degenerative tearing. Articular surfaces on the humeral head and glenoid are normal. There are no loose bodies. The undersurface of the rotator cuff appears intact. The anterior and superior labrum were debrided with the shaver. The arthroscope was placed in the subacromial space, the lateral portal was established. The Arthrex [place] was used to dissect the acromion free. The CA ligament was recessed off the anterior acromion, the AC joint was exposed. The acromioplasty was performed with the bur in the posterior portal. The bur was then placed in the lateral portal and the lateral and anterior aspect of the acromion were resected. The undersurface of the distal clavicle was resected through the lateral portal. Finally, the bur was placed in the anterior portal and the remainder of the distal clavicle was resected for a total of 10 mm. An accessory anterolateral portal was placed. The subacromial/subdeltoid bursa was aggressively debrided. There is a near full-thickness tear of the supraspinatus. There are few deep surface fibers that were still attached. Arthroscopic instruments were removed. The accessory anterolateral portal was extended proximally and distally, subcutaneous dissection was taken with electrocautery to the deltoid. The deltoid was divided in line with its fibers. The static retractor was placed. The subacromial/subdeltoid bursa was debrided with the Rodríguez scissors. The few remaining deep fibers of the rotator cuff insertion were released with the scalpel. The greater tuberosity was debrided to punctate bleeding bone using the arthroscopic bur. Two Arthrex BioComposite FiberTak anchors were placed just off the articular surface. Both limbs of the FiberWire and fiber tape were passed using the scorpion. A fiber link was placed in the leading edge of the rotator cuff x2. We tied the 2 central FiberWire sutures over the rotator cuff. We then proceeded with a lateral row of SwiveLock anchors x 2 crossing the FiberTape and incorporating the FiberWire and fiber link into each lateral row anchor. The suture on the eyelet in the lateral row anchors was passed through the leading edge of the rotator cuff x2 and tied, creating a simple suture x2. This provides an anatomic, watertight repair of the rotator cuff. There is no tension on the repair with the shoulder at 0? abduction. The wound was irrigated with normal saline off the pump. The deltoid was repaired with an 0 Vicryl in an interrupted [id number] fashion. Subcutaneous tissues were closed with a 3-0 Vicryl. Skin was closed with a 3-0 Monocryl in a subcuticular fashion. A dry dressing and sling were applied. Sponge and needle counts were correct x2. The patient tolerated the procedure well. There were no apparent complications. They were carefully transferred to the hospital bed and taken to the postanesthesia care unit in satisfactory condition. PLAN: The patient will be discharged to home. No active range of motion of the shoulder will be allowed for 6 weeks postoperatively. They can work on active range of motion of the elbow, wrist and fingers. They will follow up in the office next week for a wound check and an AP and transscapular Y-view of the shoulder prior to being seen.
--- NOTE | 2024-09-07 12:35 | P.ANES_ITS ---
Anesthesia Charges Start Date/Time Anesthesia Start Date: 09/07/24 Anesthesia Start Time: 10:23 Stop Date/Time Anesthesia Stop Date: 09/07/24 Anesthesia Stop Time: 12:39 Coding CPT Codes CPT Codes: ANESTH SURGERY OF SHOULDER - 80849 ([id number]) P3 - PATIENT W/SEVERE SYS DISEASE, QK - LOCOMOTIVE CRANE OPERATOR HELPER 2-4 CNCRNT ANES PROC, QX - SVP RESEARCH & EBUSINESS OPERATIONS SVC W/ MD MED DIRECTION
--- NOTE | 2024-09-07 12:35 | W.ANESCHARGE ---
Anesthesia Charges Start Date/Time Anesthesia Start Date: 09/07/24 Anesthesia Start Time: 10:23 Stop Date/Time Anesthesia Stop Date: 09/07/24 Anesthesia Stop Time: 12:39 Coding CPT Codes CPT Codes: ANESTH SURGERY OF SHOULDER - 12045 ([id number]) P3 - PATIENT W/SEVERE SYS DISEASE, QK - CLAY PUDDLER 2-4 CNCRNT ANES PROC, QX - SIDE GLUER SVC W/ MD MED DIRECTION
== END 2024-09-07 14:24 | disposition home or self-care (01) ==
LOC: OR 07:30
PROVIDERS: PCP Family Medicine; Visit Provider Orthopaedic Surgery
PROC: (CPT 29805; principal; 2024-09-07 09:30)
DX: M75.111 Incomplete rotator cuff tear or rupture of right shoulder, not specified as traumatic (principal); M19.011 Primary osteoarthritis, right shoulder; S43.431A Superior glenoid labrum lesion of right shoulder, initial encounter; G89.18 Other acute postprocedural pain
CPT/HCPCS: 29822; 29824; 29826; 23412; 01630; 64415; 76942; A9270; C1713; J0169; J0330; J0690; J2250; J2405; J2704; J2795; J3010; J7120